=== PATIENT | female | born 1995 | race Hispanic/Latino ===

== ENCOUNTER 2017-10-14 17:09 | Emergency (ER) | payer SELFPAY ==
[2017-10-14 17:15] VITALS: BP 106/74; PULSE 88; RESP 18; TEMP 97.8; O2SAT 100
--- NOTE | 2017-10-14 17:55 | C.PDOC ---
History Of Present Illness 22-year-old female, presents to the emergency department brought in by sister and female partner, requesting detox, patient has a history of psychiatric illness and opioid abuse since age [age]. Patients last used heroine five days ago, IV to the dorsum of her hand. Patient claims she took 1mg Xanax two days ago, and denies present intoxication or withdrawal, she is seeking intermediate card tender rehab and has a prior history of detox in this hospital from 2014. Pt claims she will probably have a clean urine tox screen. Time Seen by Provider: 10/14/17 17:53 Chief Complaint (Nursing): Substance Abuse History Per: Patient, Family Past Medical History Reviewed: Historical Data, Nursing Documentation, Vital Signs Vital Signs: Last Vital Signs Temp 97.8 F 10/14/17 17:13 Pulse 88 10/14/17 17:13 Resp 18 10/14/17 17:13 BP 106/74 10/14/17 17:13 Pulse Ox 100 10/15/17 00:33 - [facility] DRUG DETOXIFICATION (10/19/14) OTHER GROUP THERAPY (06/13/14) Family History: States: No Known Family Hx - Social History Hx Tobacco Use: Yes Hx Alcohol Use: Yes Hx Substance Use: Yes (heroin 8 years) - Immunization History Hx Tetanus Toxoid Vaccination: No Hx Influenza Vaccination: No Hx Pneumococcal Vaccination: No Review Of Systems Constitutional: Negative for: Fever Cardiovascular: Negative for: Chest Pain Respiratory: Negative for: Shortness of Breath Gastrointestinal: Negative for: Nausea, Vomiting, Abdominal Pain Neurological: Negative for: Weakness, Numbness, Headache, Dizziness Psych: Negative for: Suicidal ideation Physical Exam - Physical Exam Appears: Non-toxic, No Acute Distress (awake and alert), Other (Thin) Skin: Warm, Dry, Other (Multiple tattoos to neck) Head: Atraumatic Eye(s): bilateral: Normal Inspection, PERRL Oral Mucosa: Moist Neck: Normal ROM Cardiovascular: Rhythm Regular, No Murmur Respiratory: Normal Breath Sounds, No Accessory Muscle Use Extremity: Normal ROM Neurological/Psych: Oriented x3, Other (confabulatory, circumlocutious.) ED Course And Treatment O2 Sat by Pulse Oximetry: 100 (RA) Progress Note: 90 mins of multiple revisits 3-4 times with patient's partner and patient's sister, also with Crisis history professor simultaneously. Patient's story changes multiple times, eventually she is decided to not be eligible for acute detox due to clean urine tox at this time. Patient with no symptoms of withdrawal. She is directed by crisis to outpatient rehab programs by Crisis Evaluators a she does not meet criteria for acute and this MD agrees. Further, pt's persistent confabulatory and circumlocutius interrogatory suggests pt is lying or seeking secondary gain- as pt and partner have recently "lost their apartment due to pt's behavior issues" and themselves are suffering tumultuous relationship issues there seems to be other incentives and motivations at hand, which are consistently evaded or misrepresentated. The difference between acute detox and outpatient Rehab were vocalized and seemed underestood by pt but not her supporting family/partner. Critical Care Time - Critical Care Note Total Time (in mins): 90 Documented critical care: time excludes all time spent performing seperately billable procedures. Medical Decision Making Medical Decision Making: ? seeking detox or malingering no withdrawal issues now and not actively using heroine in 5 days. Pt's gestures and overtures to "go home and use 10 bags of heroine" were clearly explained by pt to NOT be suicidal gesture, rather her suggested mechanism to attain her goal of inpatient Rehab, though pt not forthcoming and persistently suggests she will deceive to use more heroine. Narcan prescribed in multiple doses and educated to pt and partner for emergency use and to call 911 in case of accidental or intentional narcotic overdose. Declined by Crisis for inpt eval- outpatient f/u recommended No acute medical issues to warrent inpatient eval at this time. Disposition Doctor Will See Patient In The: Office Counseled Patient/Family Regarding: Studies Performed, Diagnosis - Disposition Referrals: Alcoholics Anonymous [Outside] [facility] [Outside] [facility] [Outside] [facility] [Outside] Disposition: HOME/ ROUTINE Disposition Time: 17:55 Condition: GOOD Additional Instructions: seek outpatient follow-up through our resources as outlined Detox for narcotics not available if not actively using. Prescriptions: Naloxone HCl [Narcan] 4 mg NS ONCE PRN #2 spray PRN Reason: opiate abuse Instructions: Anxiety (ED) Forms: [facility] ([place]) - Clinical Impression Clinical Impression: Behavior concern in adult - Scribe Statement The provider has reviewed the documentation as recorded by the Scribe (Ward Barbosa) All medical record entries made by the Scribe were at my direction and personally dictated by me. I have reviewed the chart and agree that the record accurately reflects my personal performance of the history, physical exam, medical decision making, and the department course for this patient. I have also personally directed, reviewed, and agree with the discharge instructions and disposition.
== END 2017-10-14 18:00 | disposition home or self-care (01) ==
LOC: C.ER 17:09
DX: R46.89 Other symptoms and signs involving appearance and behavior (principal)